=== PATIENT | female | born 1970 | race Caucasian/White ===

== ENCOUNTER 2017-08-27 15:06 | Emergency (ER) | payer OTHER ==
[~2017-08-27] VITALS: Ht 167.6 cm; Wt 50.6 kg
[~2017-08-27 15:06] MED LIST: ASPIRIN81 MG PO; CLONIDINE0.1 MG PO; FLEXERIL OR; LEXAPRO10 MG PO; LISINOPRIL10 MG PO; LOPRESSOR50 MG OR; LORAZEPAM0.5 MG PO; MEDDOSEPAK OR; METO50TA52 PO; METOPROL TAR25 M1 PO; METOPROL TAR50 MG OR; METOPROL TAR50 MG PO; NO; NO HOME MEDS; NORCO1 TA1 PO; SYMBICORT1 AE1 IN; ULTRAM50 MG OR; ULTRAM50 MG PO
[2017-08-27 17:11] LABS: HEMATOCRIT 37.5 % (37.0-47.0); HEMOGLOBIN 11.5 g/dl (12.0-16.0); IMMATURE GRANULOCYTES 0.6 % (0.0-1.0); MEAN CELL VOLUME 74.4 fL CALC (80.0-100.0); MEAN CORPUSCULAR HGB 22.8 pG CALC (26.0-32.0); MEAN CORPUSCULAR HGB CONC 30.7 g/L CALC (32.0-36.0); NEUT# 5.61 thou/uL (2.00-7.15); RED BLOOD COUNT 5.04 mill/uL (4.20-5.60); RED CELL DISTRI WIDTH 18.7 % (11.5-15.5)
[2017-08-27 17:23] LABS: INFLUENZA A POSITIVE (NONE DETECT); INFLUENZA B NONE DETECTED (NONE DETECT)
[2017-08-27 17:29] LABS: ALBUMIN 4.1 g/dL (3.2-5.0); ALKALINE PHOSPHATASE 66 u/l (38-126); ANION GAP 16 (6-22 (CALC)); BILIRUBIN, TOTAL 0.2 mg/dL (0.0-1.4); BUN 6 mg/dL (7-17); BUN/CREATININE RATIO 8 (12-20 (CALC)); CALCIUM 9.1 mg/dL (8.4-10.2); CARBON DIOXIDE 27 mmol/l (22-30); CHLORIDE 95 mmol/l (95-108); CREATININE 0.7 mg/dL (0.5-1.0); GFR > 60 ML/MIN (>=60 (CALC)); GFR FOR AFR.AMER. > 60 ML/MIN (>=60 (CALC)); GLUCOSE 92 mg/dL (65-105); POTASSIUM 3.1 mmol/l (3.5-5.1); SGOT/AST 35 u/l (14-36); SGPT/ALT 27 u/l (9-52); SODIUM 135 mmol/l (137-146); TOTAL PROTEIN 7.3 g/dL (6.3-8.2)
[2017-08-27] MEDS ORDERED: TAM75CAP PO (17:46)
[2017-08-27] MEDS ORDERED: TORADOL PO (17:46)
[2017-08-27 18:21] VITALS: BP 168/67
== END 2017-08-27 18:20 | disposition home or self-care (01) | DRG 153 ==
LOC: ED 15:06
PROVIDERS: Emergency Medicine
DX: J11.1 Influenza due to unidentified influenza virus with other respiratory manifestations (principal); R05 Cough; R50.9 Fever, unspecified; R09.81 Nasal congestion; R51 Headache

== ENCOUNTER 2018-01-18 10:04 | Emergency (ER) | payer OTHER ==
[~2018-01-18] VITALS: Ht 167.6 cm; Wt 60.0 kg
[~2018-01-18 10:04] MED LIST changes: +TAM75CAP PO; +TORADOL PO
[2018-01-18 10:37] LABS: URINE BLOOD DIPSTICK NEGATIVE (NEGATIVE); URINE COLOR YELLOW; URINE GLUCOSE - DIPSTICK NEGATIVE (NEGATIVE); URINE KETONE 15 mg/dL (NEGATIVE); URINE LEUK ESTERASE NEGATIVE (NEGATIVE); URINE NITRITE - DIPSTICK NEGATIVE (Negative); URINE PROTEIN - DIPSTICK 30 mg/dL (NEG-TRACE); URINE SPECIFIC GRAVITY 1.015
[2018-01-18 10:38] LABS: IMMATURE GRANULOCYTES 0.5 % (0.0-1.0); MEAN CORPUSCULAR HGB 27.6 pG CALC (26.0-32.0); MEAN CORPUSCULAR HGB CONC 32.1 g/L CALC (32.0-36.0); NEUT# 10.72 thou/uL (2.00-7.15); RED BLOOD COUNT 5.51 mill/uL (4.20-5.60); RED CELL DISTRI WIDTH 22.8 % (11.5-15.5)
[2018-01-18 10:40] LABS: URINE BILIRUBIN - DIPSTICK SMALL (NEGATIVE); URINE CLARITY SL CLOUDY
[2018-01-18 10:41] LABS: URINE EPITHELIAL CELLS MODERATE EPI/hpf (0-FEW)
[2018-01-18 10:42] LABS: HEMATOCRIT 47.4 % (37.0-47.0); HEMOGLOBIN 15.2 g/dl (12.0-16.0)
[2018-01-18 10:46] LABS: ALBUMIN 4.3 g/dL (3.2-5.0); ALKALINE PHOSPHATASE 51 u/l (38-126); ANION GAP 13 (6-22 (CALC)); BILIRUBIN, TOTAL 0.7 mg/dL (0.0-1.4); BUN 5 mg/dL (7-17); BUN/CREATININE RATIO 10 (12-20 (CALC)); CARBON DIOXIDE 28 mmol/l (22-30); CHLORIDE 100 mmol/l (95-108); CREATININE 0.6 mg/dL (0.5-1.0); GFR > 60 ML/MIN (>=60 (CALC)); GFR FOR AFR.AMER. > 60 ML/MIN (>=60 (CALC)); LIPASE 77 u/l (23-300); SGOT/AST 35 u/l (14-36); SGPT/ALT 33 u/l (9-52); SODIUM 137 mmol/l (137-146); TOTAL PROTEIN 7.7 g/dL (6.3-8.2)
[2018-01-18 11:48] VITALS: BP 166/98
== END 2018-01-18 11:42 | disposition home or self-care (01) | DRG 103 ==
LOC: ED 10:04
PROVIDERS: Family Medicine
DX: G43.909 Migraine, unspecified, not intractable, without status migrainosus (principal); I10 Essential (primary) hypertension

== ENCOUNTER 2018-01-22 09:52 | Emergency (ER) | payer OTHER ==
[~2018-01-22] VITALS: Ht 167.6 cm; Wt 45.0 kg
[2018-01-22] MEDS ORDERED: NORVASC PO (10:09)
[2018-01-22 10:35] LABS: HEMATOCRIT 46.3 % (37.0-47.0); HEMOGLOBIN 14.8 g/dl (12.0-16.0); IMMATURE GRANULOCYTES 0.7 % (0.0-1.0); MEAN CELL VOLUME 86.2 fL CALC (80.0-100.0); MEAN CORPUSCULAR HGB 27.6 pG CALC (26.0-32.0); NEUT# 8.13 thou/uL (2.00-7.15); RED BLOOD COUNT 5.37 mill/uL (4.20-5.60); RED CELL DISTRI WIDTH 21.9 % (11.5-15.5)
[2018-01-22 10:54] LABS: ANION GAP 15 (6-22 (CALC)); BUN 8 mg/dL (7-17); BUN/CREATININE RATIO 13 (12-20 (CALC)); CARBON DIOXIDE 25 mmol/l (22-30); CHLORIDE 100 mmol/l (95-108); CREATININE 0.6 mg/dL (0.5-1.0); GFR > 60 ML/MIN (>=60 (CALC)); GFR FOR AFR.AMER. > 60 ML/MIN (>=60 (CALC)); POTASSIUM 3.6 mmol/l (3.5-5.1); SODIUM 137 mmol/l (137-146)
[2018-01-22] MEDS ORDERED: MECLIZINE25 MG PO (11:49)
[2018-01-22 12:08] VITALS: BP 141/90
== END 2018-01-22 12:08 | disposition home or self-care (01) | DRG 149 ==
LOC: ED 09:52
PROVIDERS: Family Medicine
DX: H81.10 Benign paroxysmal vertigo, unspecified ear (principal); I10 Essential (primary) hypertension; R22.1 Localized swelling, mass and lump, neck
CPT/HCPCS: Q9967

== ENCOUNTER → 2018-10-06 | Outpatient (REF) ==
[~2018-10-06] MED LIST changes: +MECLIZINE25 MG PO; +NORVASC PO
[2018-10-06 08:56] LABS: CHOLESTEROL HDL RATIO 1.9 (<4.4 (CALC))
== END | disposition home or self-care (01) | DRG 951 ==
LOC: LAB 07:20
PROVIDERS: ATTEND Family Medicine
DX: Z02.6 Encounter for examination for insurance purposes (principal)

== ENCOUNTER 2019-02-12 07:20 | Day surgery (SDC) | payer OTHER ==
[~2019-02-12] VITALS: Ht 167.6 cm; Wt 51.3 kg
[~2019-02-12 07:20] MED LIST changes: +TYLENOL500 MG PO
[2019-02-12 09:58] VITALS: BP 137/86
== END 2019-02-12 10:06 | disposition home or self-care (01) | DRG 951 ==
LOC: ENDO 07:20
PROVIDERS: ATTEND Surgery
PROC: 0DJD8ZZ Inspection of Lower Intestinal Tract, Via Natural or Artificial Opening Endoscopic (ICD-10-PCS; principal; 2019-02-12)
DX: Z12.11 Encounter for screening for malignant neoplasm of colon (principal); I10 Essential (primary) hypertension

== ENCOUNTER 2019-09-28 | Emergency (ER) | payer OTHER ==
[2019-09-28] MEDS ORDERED: LEXAPRO10 MG PO (07:57)
[2019-09-28] MEDS ORDERED: HYZAAR1 TA1 PO (07:58)
[2019-09-28] MEDS ORDERED: CYCLOBENZAPR5 MG PO (09:29)
== END 2019-09-28 10:18 | disposition home or self-care (01) | DRG 552 ==
DX: M62.830 Muscle spasm of back (principal); I10 Essential (primary) hypertension

== ENCOUNTER 2020-10-21 08:55 | Emergency (ER) | payer OTHER ==
[~2020-10-21] VITALS: Ht 167.6 cm; Wt 50.1 kg
[~2020-10-21 08:55] MED LIST changes: +CYCLOBENZAPR5 MG PO; +HYZAAR1 TA1 PO
[2020-10-21 09:45] LABS: GFR > 60 ML/MIN (>=60 (CALC)); GFR FOR AFR.AMER. > 60 ML/MIN (>=60 (CALC))
[2020-10-21 09:51] LABS: HEMATOCRIT 47.9 % (37.0-47.0); HEMOGLOBIN 16.1 g/dl (12.0-16.0); IMMATURE GRANULOCYTES 0.4 % (0.0-5.0); MEAN CELL VOLUME 92.8 fL CALC (80.0-100.0); MEAN CORPUSCULAR HGB 31.2 pG CALC (26.0-32.0); MEAN CORPUSCULAR HGB CONC 33.6 g/dL CAL (32.0-36.0); NEUT# 6.1 thou/uL (2.00-7.15); RED BLOOD COUNT 5.16 mill/uL (4.20-5.60); RED CELL DISTRI WIDTH 13.8 % (11.5-15.5)
[2020-10-21] MEDS ORDERED: AUGMENTIN500TAB PO (09:53)
[2020-10-21 10:07] LABS: ANION GAP 12 (6-22 (CALC)); BUN 5 mg/dL (7-17); BUN/CREATININE RATIO 8 (12-20 (CALC)); CARBON DIOXIDE 31 mmol/l (22-30); CHLORIDE 91 mmol/l (95-108); CREATININE 0.7 mg/dL (0.5-1.0); GFR > 60 ML/MIN (>=60 (CALC)); GFR FOR AFR.AMER. > 60 ML/MIN (>=60 (CALC)); POTASSIUM 2.9 mmol/l (3.5-5.1); SODIUM 131 mmol/l (137-146)
[2020-10-21 10:55] VITALS: BP 140/88
[2020-10-21] MEDS ORDERED: K-TAB20 MEQ PO (10:58)
[2020-10-22] MEDS ORDERED: HYDROCORTISONE0.5 % TOP (15:19)
== END 2020-10-21 10:55 | disposition home or self-care (01) | DRG 159 ==
LOC: ED 08:55
PROVIDERS: Emergency Medicine; Family Medicine
DX: K04.7 Periapical abscess without sinus (principal); E87.6 Hypokalemia; I10 Essential (primary) hypertension; F41.9 Anxiety disorder, unspecified
CPT/HCPCS: Q9967

== ENCOUNTER 2020-10-22 14:04 | Emergency (ER) | payer OTHER ==
[~2020-10-22] VITALS: Ht 167.6 cm; Wt 58.1 kg
[~2020-10-22 14:04] MED LIST changes: +AUGMENTIN500TAB PO; +K-TAB20 MEQ PO
[2020-10-22 14:46] LABS: BUN 7 mg/dL (7-17); BUN/CREATININE RATIO 12 (12-20 (CALC)); CARBON DIOXIDE 29 mmol/l (22-30); CHLORIDE 91 mmol/l (95-108); CREATININE 0.6 mg/dL (0.5-1.0); GFR > 60 ML/MIN (>=60 (CALC)); GFR FOR AFR.AMER. > 60 ML/MIN (>=60 (CALC)); SODIUM 127 mmol/l (137-146)
[2020-10-22 14:47] LABS: ANION GAP 11 (6-22 (CALC)); POTASSIUM 3.9 mmol/l (3.5-5.1)
[2020-10-22] MEDS ORDERED: HYDROCORTISONE0.5 % TOP (15:19)
[2020-10-22 16:36] VITALS: BP 140/82
== END 2020-10-22 15:15 | disposition home or self-care (01) | DRG 641 ==
LOC: ED 14:04
DX: E87.1 Hypo-osmolality and hyponatremia (principal); I10 Essential (primary) hypertension; F41.9 Anxiety disorder, unspecified

== ENCOUNTER 2021-04-06 17:18 | Emergency (ER) | payer OTHER ==
[~2021-04-06] VITALS: Ht 167.6 cm; Wt 55.0 kg
[~2021-04-06 17:18] MED LIST changes: +HYDROCORTISONE0.5 % TOP
[2021-04-06] MEDS ORDERED: NORVASC5 M1 PO (18:42)
[2021-04-06] MEDS ORDERED: OMNI-PAC300 MG PO (19:37)
[2021-04-06 20:25] VITALS: BP 158/96
== END 2021-04-06 20:25 | disposition home or self-care (01) | DRG 605 ==
LOC: ED 17:18
DX: S80.212A Abrasion, left knee, initial encounter (principal); L08.9 Local infection of the skin and subcutaneous tissue, unspecified; M25.512 Pain in left shoulder; I10 Essential (primary) hypertension; F41.9 Anxiety disorder, unspecified; W01.0XXA Fall on same level from slipping, tripping and stumbling without subsequent striking against object, initial encounter; Y92.239 Unspecified place in hospital as the place of occurrence of the external cause; Y99.0 Civilian activity done for income or pay

== ENCOUNTER 2024-05-09 15:17 | Emergency (ER) | payer OTHER ==
[2024-05-09] VITALS (12 sets, daily range): BP systolic 136–194; BP diastolic 95–117
[~2024-05-09] VITALS: Ht 167.6 cm; Wt 59.0 kg
[~2024-05-09 15:17] MED LIST changes: +NORVASC5 M1 PO; +OMNI-PAC300 MG PO
[2024-05-09] MEDS ORDERED: KETOROLAC TROMETHAMINE 30 MG/ML SDV IV ONE (15:35)
[2024-05-09 16:13] LABS: BASO% 0.6 % (0-3); EOS% 3.3 % (0-8); HEMATOCRIT 49.8 % (37.0-47.0); IMMATURE GRANULOCYTES 0.3 % (0.0-5.0); MEAN CELL VOLUME 99.4 fL CALC (80.0-100.0); MEAN CORPUSCULAR HGB 33.9 pG CALC (26.0-32.0); MEAN CORPUSCULAR HGB CONC 34.1 g/dL CAL (32.0-36.0); MONO% 7.8 % (2-13); NEUT# 4.36 thou/uL (2.00-7.15); RED BLOOD COUNT 5.01 mill/uL (4.20-5.60); RED CELL DISTRI WIDTH 12.2 % (11.5-15.5)
[2024-05-09 16:26] LABS: ALBUMIN 4.4 g/dL (3.2-5.0); ALKALINE PHOSPHATASE 64 u/l (38-126); ANION GAP 8 (6-22 (CALC)); BILIRUBIN, TOTAL 0.5 mg/dL (0.02-1.3); BUN 12 mg/dL (7-17); BUN/CREATININE RATIO 13 (12-20 (CALC)); CARBON DIOXIDE 26 mmol/l (22-30); CHLORIDE 107 mmol/l (95-108); CREATININE 0.9 mg/dL (0.5-1.0); ESTIMATED GFR 76 ML/MIN (>=90 (CALC)); POTASSIUM 4.2 mmol/l (3.5-5.1); SGOT/AST 40 u/l (14-36); SODIUM 138 mmol/l (137-146); TOTAL PROTEIN 7.3 g/dL (6.3-8.2)
[2024-05-11] MEDS ORDERED: TORADOL PO (09:44)
== END 2024-05-09 21:35 | disposition home or self-care (01) | DRG 204 ==
LOC: ED 15:17
PROVIDERS: Family Medicine
DX: R07.81 Pleurodynia (principal); I10 Essential (primary) hypertension; F41.9 Anxiety disorder, unspecified
CPT/HCPCS: Q9967